=== PATIENT | male | born 1970 | race African-American/Black ===

== ENCOUNTER 2016-10-12 03:49 | Emergency (ER) | payer OTHER ==
[~2016-10-12 03:49] MED LIST: FIORIC PO
[2016-10-12 03:57] VITALS: BP 134/65; PULSE 78; RESP 18; TEMP 98.4; O2SAT 100
[2016-10-12] MEDS ORDERED: ROBA750T PO (03:57)
[2016-10-12] MEDS ORDERED: HYDR-3533 PO (03:57)
[2016-10-12] MEDS ORDERED: DICL75TA PO (03:57)
[2016-10-12] MEDS ORDERED: HYDROmorphone HCL PF 1 MG/ML VIAL IM ONE (04:00)
[2016-10-12] MEDS ORDERED: LORazepam 2 MG/ML VIAL IM ONE (04:00)
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
== END 2016-10-12 05:45 | disposition home or self-care (01) ==
LOC: NEPB 03:49
DX: S39.012A Strain of muscle, fascia and tendon of lower back, initial encounter (principal); J43.9 Emphysema, unspecified; Z86.73 Personal history of transient ischemic attack (TIA), and cerebral infarction without residual deficits; Z79.899 Other long term (current) drug therapy; X50.1XXA Overexertion from prolonged static or awkward postures, initial encounter; X50.3XXA Overexertion from repetitive movements, initial encounter; Y93.H2 Activity, gardening and landscaping; Y92.007 Garden or yard of unspecified non-institutional (private) residence as the place of occurrence of the external cause; Y99.8 Other external cause status
CPT/HCPCS: 96372; 99283; J1170; J2060